=== PATIENT | female | born 1945 | race Hispanic/Latino ===

== ENCOUNTER 2024-11-25 08:05 | Outpatient (CLI) | payer MEDICARE ==
[2024-11-25] MEDS ORDERED: Iopamidol 300 61% 100 ML VIAL FS ONE (10:14)
== END 2024-11-25 08:06 | disposition home or self-care (01) ==
LOC: CSHCT 08:05
PROVIDERS: ATTEND Urology
DX: R31.29 Other microscopic hematuria (principal); C64.9 Malignant neoplasm of unspecified kidney, except renal pelvis; R91.1 Solitary pulmonary nodule; R91.8 Other nonspecific abnormal finding of lung field; N28.9 Disorder of kidney and ureter, unspecified
CPT/HCPCS: 71260; 74178